=== PATIENT | female | born 1960 | race Hispanic/Latino ===

== ENCOUNTER 2020-06-18 11:20 | Emergency (ER) | payer OTHER ==
[~2020-06-18] VITALS: Ht 165.1 cm; Wt 91.2 kg
== END 2020-06-18 12:48 | disposition home or self-care (01) ==
LOC: FSED 11:40
DX: S01.01XA Laceration without foreign body of scalp, initial encounter (principal); W01.0XXA Fall on same level from slipping, tripping and stumbling without subsequent striking against object, initial encounter; Y93.01 Activity, walking, marching and hiking; Y92.008 Other place in unspecified non-institutional (private) residence as the place of occurrence of the external cause
CPT/HCPCS: 70450; 83518; 99283

== ENCOUNTER 2020-06-26 12:40 | Emergency (ER) | payer OTHER ==
[~2020-06-26] VITALS: Ht 167.6 cm; Wt 79.4 kg
== END 2020-06-26 12:55 | disposition home or self-care (01) ==
LOC: FSED 12:50
DX: Z48.02 Encounter for removal of sutures (principal)
CPT/HCPCS: 99282